=== PATIENT | male | born 1985 | race Caucasian/White ===

== ENCOUNTER 2020-04-24 16:06 | Emergency (ER) | payer BC ==
[2020-04-24] MEDS ORDERED: DIPH/PERTUSS(ACELL)/TETANUS VAC/PF 0.5 ML SYR (>=10YO) IM ONE (16:28)
[2020-04-24] MEDS ORDERED: HYDROCODONE/ACETAMINOPHEN 5-325 MG TABLET PO ONE (16:28)
--- NOTE | 2020-04-24 16:34 | ER Document Report ---
ED Medical Screen (RME) - General Chief Complaint: Fall Stated Complaint: FALL/LEFT LEG,HEAD INJURY Time Seen by Provider: 04/24/20 16:23 Mode of Arrival: Wheelchair Information source: Patient Notes: 34-year-old male presented to ED for multiple deep lacerations and avulsions to the left lower leg ankle and foot. He states he fell 8 feet off of a roof landing on his back and head after his left leg went through a window causing multiple lacerations and avulsions. The bleeding is not completely stopped so I put wet gauze and Mckay wrap to the foot and leg. He does have an abrasion and a small knot to the back of his head and states he does have some blurred vision. Ordered 1 [place] and a tetanus immunization because the patient states his immunization is not up-to-date. He will go to the CT scan radiology and then he will go to a room where he will be seen by another provider. I have greeted and performed a rapid initial assessment of this patient. A comprehensive ED assessment and evaluation of the patient, analysis of test results and completion of medical decision making process will be conducted by an additional ED providers. - Related Data Allergies/Adverse Reactions: No Known Allergies Allergy (Verified 04/24/20 16:27) Past Medical History Renal/ Medical History: Reports: Hx Kidney Stones Past Surgical History: Reports: Hx Cholecystectomy - Immunizations Hx Diphtheria, Pertussis, Tetanus Vaccination: Yes Physical Exam - Vital signs Vitals: Temp Pulse Resp BP Pulse Ox 98.3 F 100 18 119/93 H 97 04/24/20 16:12 04/24/20 16:12 04/24/20 16:12 04/24/20 16:12 04/24/20 16:12 Course - Vital Signs Vital signs: Temp Pulse Resp BP Pulse Ox 98.3 F 100 18 119/93 H 97 04/24/20 16:12 04/24/20 16:12 04/24/20 16:12 04/24/20 16:12 04/24/20 16:12
--- NOTE | 2020-04-24 17:02 | RADIOLOGY REPORT (SQ) ---
EXAM DESCRIPTION: CT HEAD WITHOUT IMAGES COMPLETED DATE/TIME: 04/24/2020 4:48 pm REASON FOR STUDY: Fell off roof hit back of head blurred vision COMPARISON: None. TECHNIQUE: Axial images acquired through the brain without intravenous contrast. Images reviewed wi th bone, brain and subdural windows. Additional sagittal and coronal reconstructions were generated. Images stored on PACS. All CT scanners at this facility use dose modulation, iterative reconstruction, and/or weight based d osing when appropriate to reduce radiation dose to as low as reasonably achievable (ALARA). [facility]: Dose Right [facility]: CareDose [facility]: Dose Right [facility]: Teradose 4D [facility]: [employer] RADIATION DOSE: CT Rad equipment meets quality standard of care and radiation dose reduction techniq ues were employed. CTDIvol: 53.2 mGy. DLP: 964 mGy-cm. mGy. LIMITATIONS: None. FINDINGS: VENTRICLES: Normal size and contour. CEREBRUM: No masses. No hemorrhage. No midline shift. No evidence for acute infarction. Normal gra y/white matter differentiation. No areas of low density in the white matter. CEREBELLUM: No masses. No hemorrhage. No alteration of density. No evidence for acute infarction. EXTRAAXIAL SPACES: No fluid collections. No masses. ORBITS AND GLOBE: No intra- or extraconal masses. Normal contour of globe without masses. CALVARIUM: No fracture. PARANASAL SINUSES: No fluid or mucosal thickening. SOFT TISSUES: No mass or hematoma. OTHER: No other significant finding. IMPRESSION: NORMAL BRAIN CT WITHOUT CONTRAST. EVIDENCE OF ACUTE STROKE: NO. COMMENT: Quality ID # [id number]: Final reports with documentation of one or more dose reduction techniques (e.g., Automated exposure control, adjustment of the mA and/or kV according to patient size, use of iterative reconstruction technique) TECHNICAL DOCUMENTATION: JOB ID: [id number] 2010 [employer]- All Rights Reserved Reading location - IP/workstation name: [email or web address]
--- NOTE | 2020-04-24 17:04 | RADIOLOGY REPORT (SQ) ---
EXAM DESCRIPTION: FOOT LEFT COMPLETE IMAGES COMPLETED DATE/TIME: 04/24/2020 4:48 pm REASON FOR STUDY: Leg went through window multiple deep lacerations COMPARISON: None. NUMBER OF VIEWS: Three views. TECHNIQUE: AP, lateral and oblique radiographic images acquired of the left foot. LIMITATIONS: None. FINDINGS: MINERALIZATION: Normal. BONES: No acute fracture or dislocation. No worrisome bone lesions. JOINTS: No effusions. SOFT TISSUES: 8 tiny focus of subcutaneous gas is seen over the dorsal midfoot, likely on the basis o f soft tissue injury. No retained radiopaque foreign body. OTHER: No other significant finding. IMPRESSION: Dorsal soft tissue injury without underlying osseous injury. TECHNICAL DOCUMENTATION: JOB ID: [id number] 2010 [employer]- All Rights Reserved Reading location - IP/workstation name: [email or web address]
--- NOTE | 2020-04-24 17:05 | RADIOLOGY REPORT (SQ) ---
EXAM DESCRIPTION: TIBIA FIBULA LEFT IMAGES COMPLETED DATE/TIME: 04/24/2020 4:48 pm REASON FOR STUDY: Leg went through window multiple deep lacerations COMPARISON: None. NUMBER OF VIEWS: Two views. TECHNIQUE: Two radiographic images acquired of the left tibia and fibula to include the knee and ank le in at least one projection. LIMITATIONS: None. FINDINGS: MINERALIZATION: Normal. BONES: No acute fracture or dislocation. No worrisome bone lesions. SOFT TISSUES: Soft tissue irregularity is seen anterior to the mid tibial diaphysis. OTHER: No other significant finding. IMPRESSION: Anterior soft tissue injury without underlying osseous injury. TECHNICAL DOCUMENTATION: JOB ID: [id number] 2010 [employer]- All Rights Reserved Reading location - IP/workstation name: [email or web address]
[2020-04-24] MEDS ORDERED: ONDANSETRON 4 MG TAB.RAPDIS PO ONE (17:51)
[2020-04-24] MEDS ORDERED: MORPHINE SULFATE 10 MG/ML INJ IM ONE (17:51)
[2020-04-24] MEDS ORDERED: CEPHALEXIN 500 MG CAPSULE PO ONE (17:53)
[2020-04-24] MEDS ORDERED: LIDOCAINE 1.5%/EPINEPHRINE INJ-PF 30 ML SDV INJ ONE (17:53)
[2020-04-24] MEDS ORDERED: LIDOCAINE 1.5%/EPINEPHRINE INJ-PF 30 ML SDV ONE (18:09)
--- NOTE | 2020-04-24 18:23 | RADIOLOGY REPORT (SQ) ---
EXAM DESCRIPTION: CHEST 2 VIEWS IMAGES COMPLETED DATE/TIME: 04/24/2020 5:07 pm REASON FOR STUDY: injury COMPARISON: None. EXAM PARAMETERS: NUMBER OF VIEWS: two views TECHNIQUE: Digital Frontal and Lateral radiographic views of the chest acquired. RADIATION DOSE: NA LIMITATIONS: none FINDINGS: LUNGS AND PLEURA: Lungs are hyperinflated. No opacities, masses or pneumothorax. No pleur al effusion. MEDIASTINUM AND HILAR STRUCTURES: No masses or contour abnormalities. HEART AND VASCULAR STRUCTURES: Heart normal size. No evidence for failure. BONES: No acute findings. HARDWARE: None in the chest. OTHER: No other significant finding. IMPRESSION: No acute cardiopulmonary disease. Hyperinflated lungs which can be seen with obstructiv e lung disease. TECHNICAL DOCUMENTATION: JOB ID: [id number] 2010 [employer]- All Rights Reserved Reading location - IP/workstation name: [id number]
--- NOTE | 2020-04-24 19:32 | ER Document Report ---
ED General <YESICA HART - Last Filed: 04/24/20 20:09> - General Mode of Arrival: Wheelchair - Related Data Home Medications: None <JAIDEN LABOY - Last Filed: 04/24/20 21:31> - General Chief Complaint: Fall Stated Complaint: FALL/LEFT LEG,HEAD INJURY Time Seen by Provider: 04/24/20 16:23 - HPI Notes: Patient is a 34-year-old male who presents emergency department for evaluation. He was on a roof, on a ladder. He went to step down the ladder slipped away. He fell with a ladder, down onto concrete ground. He struck the back of his head. He did not lose consciousness. He complains of pain in his left leg and in his head, as well as his anterior left chest wall. He sustained multiple lacerations to his left lower extremity when window broke with the fall. His tetanus is not up-to-date. He denies any numbness or tingling. He can see, speak, swallow without difficulty. He denies any shortness of breath. (JAIDEN LABOY) - Related Data Allergies/Adverse Reactions: No Known Allergies Allergy (Verified 04/24/20 16:27) Past Medical History - General Information source: Patient - Social History Smoking Status: Current Every Day Smoker Family History: DM, Hypertension Renal/ Medical History: Reports: Hx Kidney Stones Past Surgical History: Reports: Hx Cholecystectomy - Immunizations Hx Diphtheria, Pertussis, Tetanus Vaccination: Yes <JAIDEN LABOY - Last Filed: 04/24/20 21:31> Review of Systems - Review of Systems Constitutional: No symptoms reported EENT: No symptoms reported Cardiovascular: No symptoms reported Respiratory: No symptoms reported Gastrointestinal: No symptoms reported Genitourinary: No symptoms reported Musculoskeletal: See HPI Skin: See HPI Neurological/Psychological: No symptoms reported <JAIDEN LABOY - Last Filed: 04/24/20 21:31> Physical Exam <JAIDEN LABOY - Last Filed: 04/24/20 21:31> - Vital signs Vitals: Temp Pulse Resp BP Pulse Ox 98.3 F 100 18 119/93 H 97 04/24/20 16:12 04/24/20 16:12 04/24/20 16:12 04/24/20 16:12 04/24/20 16:12 - Notes Notes: Vital signs reviewed, please refer to chart. Head is normocephalic. Tender over the posterior occiput. Pupils equal round, reactive to light. Nares are patent without septal hematoma. No facial bone tenderness, no orbital stepoff. Oral m ucosa is moist. Uvula is midline. Examination of the spine yields no midline tenderness or step-off. No paraspinal musculature tenderness is appreciated. Heart is regular rate and rhythm. Lungs are clear to auscultation bilaterally. Chest wall excursion is equal, chest is mildly tender over the eighth and ninth ribs, on the left, from the anterior axillary line to the midclavicular line. No subcutaneous emphysema. Abdomen is soft, nontender, normoactive bowel sounds throughout. Extremities without cyanosis, clubbing. Posterior calves are nontender. Peripheral pulses are equal. Skin is warm and dry. Patient has multiple lacerations to the left lower extremity. He has a U-shaped laceration approximately 5 cm in length, inferior lateral left leg. He has a 2 cm laceration overlying the dorsum of the foot. He has another U-shaped laceration with a linear component, measuring approximately 4 cm, on the posterior calcaneus, overlying the Achilles tendon. Negative Mejia test. He has a large skin avulsion with exposure of muscular tissue to the mid lateral leg, overlying the anterior tibialis muscle. There is only a proximally 1 cm violation of the muscular fascia, but a large amount of subcutaneous tissue and skin is missing. Patient has significant difficulty with dorsiflexion of the foot. Sensation intact to the entire left lower extremity. He has a linear laceration patient is awake, alert, oriented x3. Cranial nerves II - XII are grossly intact without focal neurological deficits. Strength is plus 5 out of 5 bilateral upper and lower extremities, with the exception of the aforementioned dorsiflexion of the left foot. Sensation is intact. Reflexes symmetrical. Intact [id number], rapid alternating movements, [id number]. (JAIDEN LABOY) Course - Diagnostic Test Radiology reviewed: Image reviewed, Reports reviewed <JAIDEN LABOY - Last Filed: 04/24/20 21:31> - Re-evaluation Re-evalutation: 04/24/20 19:31 Patient presents to the emergency department for evaluation. He was initially seen through triage. He had his tetanus updated, had images ordered. I did order additional images and pain medication. I spoke with Dr. Lobo at 1737. I notified him of my concerns in regards to the avulsed skin and the difficulty with dorsiflexion of the foot. He recommends a wet-to-dry dressing. He will be seen in the office for possible skin grafting. Otherwise, patient is given pain medication, prophylactic antibiotics. Wounds were closed by the nurse practitioner, please see her procedure note. Following closure of these wounds we will place the patient in a posterior splint with dorsiflexion in place. We will send him home with pain medication and antibiotics. 04/24/20 20:24 Wounds closed by the nurse practitioner, please see her separate procedure note. Splint is being ordered, as well as crutches. We will send him with pain medication and antibiotics. 04/24/20 21:22 Patient neurovascularly intact following splint placement. Stable for discharge. (JAIDEN LABOY) - Vital Signs Vital signs: Temp Pulse Resp BP Pulse Ox 98.3 F 100 18 119/93 H 97 04/24/20 16:12 04/24/20 16:12 04/24/20 16:12 04/24/20 16:12 04/24/20 16:12 - Diagnostic Test Radiology results interpreted by me: 04/24/20 21:22 Foot X-Ray 04/24/20 16:23 IMPRESSION: Dorsal soft tissue injury without underlying osseous injury. Tibia/Fibula X-Ray 04/24/20 16:23 IMPRESSION: Anterior soft tissue injury without underlying osseous injury. Head CT 04/24/20 16:28 IMPRESSION: NORMAL BRAIN CT WITHOUT CONTRAST. EVIDENCE OF ACUTE STROKE: NO. Chest X-Ray 04/24/20 17:51 IMPRESSION: No acute cardiopulmonary disease. Hyperinflated lungs which can be seen with obstructive lung disease. (JAIDEN LABOY) Procedures - Laceration/Wound Repair Left Dorsal Foot Wound length (cm): 2 Wound's Depth, Shape: Linear Laceration pre-procedure: Shur-Clens applied Anesthetic type: 1% Lidocaine w/epi Wound explored: Clean Wound Repaired With: Sutures Suture Size/Type: 4:0, Prolene Number of Sutures: 3 Post-procedure wound care: Sterile dressing applied Post-procedure NV exam normal: Yes Complications: No Left Posterior Foot Wound length (cm): 5.5 Wound's Depth, Shape: Irregular, Flap Laceration pre-procedure: Shur-Clens applied Anesthetic type: 1% Lidocaine w/epi Wound explored: Clean Wound Repaired With: Sutures Suture Size/Type: 4:0, 3:0, Prolene, Nylon Number of Sutures: 9 Layer Closure?: No Post-procedure wound care: Sterile dressing applied Post-procedure NV exam normal: Yes Complications: No Left Anterior Leg Wound length (cm): 7.5 Wound's Depth, Shape: Irregular, Flap Laceration pre-procedure: Shur-Clens applied Anesthetic type: 1% Lidocaine w/epi Wound Repaired With: Sutures Suture Size/Type: 4:0, 3:0, Prolene Number of Sutures: 11 Layer Closure?: No Post-procedure NV exam normal: Yes Complications: No Adult Front & Back picture: 1 - lac <YESICA HART - Last Filed: 04/24/20 20:09> - Laceration/Wound Repair Left Posterior Foot Notes: 04/24/20 20:10 posterior heel (YESICA HART) Discharge <YESICA HART - Last Filed: 04/24/20 20:09> <JAIDEN LABOY - Last Filed: 04/24/20 21:31> - Discharge Clinical Impression: Acute chest wall pain Closed head injury Qualifiers: Encounter type: initial encounter Qualified Code(s): S09.90XA - Unspecified injury of head, initial encounter Lacerations of multiple sites of left leg Qualifiers: Encounter type: initial encounter Qualified Code(s): S81.812A - Laceration without foreign body, left lower leg, initial encounter Avulsion of soft tissue of left lower leg Qualifiers: Encounter type: initial encounter Qualified Code(s): S81.802A - Unspecified open wound, left lower leg, initial encounter Condition: Stable Disposition: HOME, SELF-CARE Instructions: Antibiotic Ointment Protection ([facility]), Laceration Care ([facility]), Oral Narcotic Medication ([facility]), Prophylactic Antibiotic ([facility]), Tetanus Immunization Given ([facility]) Additional Instructions: Take antibiotic as prescribed. [place] as needed for severe pain, ibuprofen as needed for moderate pain. Please watch for dizziness, drowsiness, constipation with the [place]. Please contact Dr. Lobo's office for a follow-up appointment this week. If he develops fever, vomiting, shortness of breath, worsened pain, or any other new or concerning symptoms, please return immediately to the emergency department for evaluation. Prescriptions: Hydrocodone/Acetaminophen [Hydrocodon-Acetaminoph 2.5-325] 1 each PO Q6HP PRN #10 tablet PRN Reason: Cephalexin Monohydrate [Keflex 500 mg Capsule] 500 mg PO TID #20 capsule Forms: Return to Work Referrals: DEON LOBO JR, DO [ACTIVE PROVISIONAL STAFF] - Follow up as needed
[2020-04-24] MEDS ORDERED: HYDROCODONE/ACETAMINOPHEN 5-325 MG (6 TAB/ER DISP) PO PRN (20:53)
[2020-04-24 21:55] VITALS: BP 124/72
== END 2020-04-24 21:55 | disposition home or self-care (01) ==
LOC: ER 16:06
DX: S81.812A Laceration without foreign body, left lower leg, initial encounter (principal); S91.312A Laceration without foreign body, left foot, initial encounter; S91.012A Laceration without foreign body, left ankle, initial encounter; R07.89 Other chest pain; S00.01XA Abrasion of scalp, initial encounter; R51.9 Headache, unspecified; W13.2XXA Fall from, out of or through roof, initial encounter; W25.XXXA Contact with sharp glass, initial encounter; F17.200 Nicotine dependence, unspecified, uncomplicated; Z23 Encounter for immunization
CPT/HCPCS: 99285; 96372; 71046; 73630; 73590; 70450; 90715; 12005; S0119; J2270; J3490

== ENCOUNTER 2020-04-25 10:42 | Emergency (ER) | payer BC ==
--- NOTE | 2020-04-25 11:36 | ER Document Report ---
ED Medical Screen (RME) - General Chief Complaint: Neck and Upper Back Pain Stated Complaint: FALL/ NECK TINGLING/ SORENESS Time Seen by Provider: 04/25/20 11:31 Mode of Arrival: Wheelchair Information source: Patient Notes: 34-year-old male was seen yesterday for after he fell off a roof. At that time he states that his neck and back were not hurting he was having extreme pain in his leg and head. The leg was repaired in the ED has an appointment with Dr. Dr. Lobo tomorrow and his head was CTs are negative. He states that now his neck and back are more painful. We will order CT of the neck and upper back and a lumbar x-ray. Patient is alert oriented respirations regular nonlabored at this time. I have greeted and performed a rapid initial assessment of this patient. A c omprehensive ED assessment and evaluation of the patient, analysis of test results and completion of medical decision making process will be conducted by an additional ED providers. - Related Data Allergies/Adverse Reactions: No Known Allergies Allergy (Verified 04/24/20 16:27) Past Medical History Renal/ Medical History: Reports: Hx Kidney Stones Past Surgical History: Reports: Hx Cholecystectomy - Immunizations Hx Diphtheria, Pertussis, Tetanus Vaccination: Yes Physical Exam - Vital signs Vitals: Temp Pulse Resp BP Pulse Ox 98.1 F 63 18 123/76 97 04/25/20 11:02 04/25/20 11:02 04/25/20 11:02 04/25/20 11:02 04/25/20 11:02 Course - Vital Signs Vital signs: Temp Pulse Resp BP Pulse Ox 98.1 F 63 18 123/76 97 04/25/20 11:02 04/25/20 11:02 04/25/20 11:02 04/25/20 11:02 04/25/20 11:02
--- NOTE | 2020-04-25 12:14 | RADIOLOGY REPORT (SQ) ---
EXAM DESCRIPTION: CT CERVICAL SPINE WITHOUT IMAGES COMPLETED DATE/TIME: 04/25/2020 11:51 am REASON FOR STUDY: Fell off roof yesterday landed on head neck and COMPARISON: None. TECHNIQUE: Axial images acquired through the cervical spine without intravenous contrast. Images re viewed with lung, soft tissue and bone windows. Reconstructed coronal and sagittal MPR images review ed. Images stored on PACS. All CT scanners at this facility use dose modulation, iterative reconstruction, and/or weight based d osing when appropriate to reduce radiation dose to as low as reasonably achievable (ALARA). [facility]: Dose Right [facility]: CareDose [facility]: Dose Right [facility]: Teradose 4D [facility]: [employer] RADIATION DOSE: CT Rad equipment meets quality standard of care and radiation dose reduction techniq ues were employed. CTDIvol: 19.5 mGy. DLP: 396 mGy-cm. mGy. LIMITATIONS: None. FINDINGS: ALIGNMENT: Anatomic. MINERALIZATION: Normal. VERTEBRAL BODIES: No fractures or dislocation. DISCS: No significant disc disease. FACETS, LATERAL MASSES, POSTERIOR ELEMENTS: No fractures. No dislocation. No acute findings. HARDWARE: None in the spine. VISUALIZED RIBS: No fractures. LUNG APICES AND SOFT TISSUES: No significant or acute findings. OTHER: No other significant finding. IMPRESSION: NO ACUTE OR SIGNIFICANT FINDINGS IN THE CERVICAL SPINE. TECHNICAL DOCUMENTATION: JOB ID: [id number] Quality ID # [id number]: Final reports with documentation of one or more dose reduction techniques (e.g., Au tomated exposure control, adjustment of the mA and/or kV according to patient size, use of iterative reconstruction technique) 2010 [email or web address]- All Rights Reserved Reading location - IP/workstation name: [email or web address]
--- NOTE | 2020-04-25 12:16 | RADIOLOGY REPORT (SQ) ---
EXAM DESCRIPTION: CT THORACIC SPINE WITHOUT IMAGES COMPLETED DATE/TIME: 04/25/2020 11:51 am REASON FOR STUDY: Fell off roof yesterday landed on head neck and COMPARISON: None. TECHNIQUE: Axial images acquired through the thoracic spine without intravenous contrast. Images re viewed with lung, soft tissue and bone windows. Reconstructed coronal and sagittal MPR images review ed. Images stored on PACS. All CT scanners at this facility use dose modulation, iterative reconstruction, and/or weight based d osing when appropriate to reduce radiation dose to as low as reasonably achievable (ALARA). [facility]: Dose Right [facility]: CareDose [facility]: Dose Right [facility]: Teradose 4D [facility]: Smart [employer] RADIATION DOSE: CT Rad equipment meets quality standard of care and radiation dose reduction techniq ues were employed. CTDIvol: 94.9 mGy. DLP: 3653 mGy-cm. LIMITATIONS: None. FINDINGS: VISUALIZED LUNGS: No acute opacities. No pneumothorax. SOFT TISSUES: No soft tissue swelling. No masses. VERTEBRAL BODIES: No fractures. No dislocation. No acute findings. DISCS: No significant disc space narrowing. ALIGNMENT: Normal. TRANSVERSE PROCESSES, POSTERIOR ELEMENTS: No fractures. No dislocation. No acute findings. HARDWARE: None in the spine. VISUALIZED RIBS: No fractures. OTHER: A nonobstructing 3--4 mm calculus in the upper pole of the right kidney. Small punctate nono bstructing calculus in the lower pole of the left kidney. IMPRESSION: 1. No acute osseous findings. 2. Incidentally, small subcentimeter bilateral nonobstructing nephrolithiasis. TECHNICAL DOCUMENTATION: JOB ID: [id number] Quality ID # [id number]: Final reports with documentation of one or more dose reduction techniques (e.g., Au tomated exposure control, adjustment of the mA and/or kV according to patient size, use of iterative reconstruction technique) 2010 [employer]- All Rights Reserved Reading location - IP/workstation name: [email or web address]
--- NOTE | 2020-04-25 12:49 | RADIOLOGY REPORT (SQ) ---
EXAM DESCRIPTION: L SPINE WHOLE IMAGES COMPLETED DATE/TIME: 04/25/2020 12:40 pm REASON FOR STUDY: Fell off roof yesterday landed on head neck and COMPARISON: None. NUMBER OF VIEWS: Five views including obliques. TECHNIQUE: AP, lateral, oblique, and sacral radiographic images acquired of the lumbar spine. LIMITATIONS: None. FINDINGS: MINERALIZATION: Normal. SEGMENTATION: Normal. No transitional anatomy. ALIGNMENT: Normal. VERTEBRAE: Maintained height. No fracture or worrisome bone lesion. DISCS: Preserved height. No significant osteophytes or end plate irregularity. POSTERIOR ELEMENTS: Pedicles and facets are intact. No pars defect or posterior arch defects. HARDWARE: None in the spine. PARASPINAL SOFT TISSUES: Normal. PELVIS: Intact as visualized. No fractures or worrisome bone lesions. SI joints intact. OTHER: Incidentally, small right renal calculus. IMPRESSION: 1. No acute osseous findings. TECHNICAL DOCUMENTATION: JOB ID: [id number] 2010 [employer]- All Rights Reserved Reading location - IP/workstation name: [email or web address]
[2020-04-25] MEDS ORDERED: HYDROCODONE/ACETAMINOPHEN 5-325 MG TABLET PO ONE (15:54)
--- NOTE | 2020-04-25 16:09 | ER Document Report ---
ED Neck/Back Problem - General Chief Complaint: Neck and Upper Back Pain Stated Complaint: FALL/ NECK TINGLING/ SORENESS Time Seen by Provider: 04/25/20 11:31 Mode of Arrival: Wheelchair Notes: CHIEF COMPLAINT: Neck and back pain HPI: 34-year-old male presenting again to the emergency department for neck and back pain after a mechanical fall off a roof yesterday. Patient slipped off the ladder and fell to the ground striking his back and head against the ground no loss of consciousness. Patient cut his left lower leg on a window that broke. Patient states he was here in the emergency department yesterday had some imaging studies of the leg of the head done and had sutures placed in the left leg. Patient states he noticed some numbness and tingling in the upper back lower neck region today so came back in for reevaluation. Denies weakness numbness or tingling in the extremities. Denies chest pain abdominal pain. ROS: See HPI - all other systems were reviewed and are otherwise negative Constitutional: no fever Eyes: no drainage, no blurred vision ENT: no runny nose, no sore throat Cardiovascular: no chest pain Resp: no SOB, no cough GI: no vomiting, no diarrhea, no abdominal pain : no dysuria Integumentary: no rash Allergy: no hives Musculoskeletal: + extremity pain or swelling, positive neck pain, positive back pain Neurological: no numbness/tingling, no weakness MEDICATIONS: I agree with the patient medications as charted by the RN. ALLERGIES: I agree with the allergies as charted by the RN. PAST MEDICAL HISTORY/PAST SURGICAL HISTORY: Reviewed and agree as charted by RN. SOCIAL HISTORY: Reviewed and agree as charted by RN. FAMILY HISTORY: No significant familial comorbid conditions directly related to patient complaint EXAM: Reviewed vital signs as charted by RN. CONSTITUTIONAL: Alert and oriented and responds appropriately to questions. Well-appearing; well-nourished HEAD: Normocephalic; atraumatic EYES: PERRL; Conjunctivae clear, sclerae non-icteric ENT: normal nose; no rhinorrhea; moist mucous membranes; pharynx without lesions noted, no uvula edema or deviation, no tonsillar hypertrophy, phonation normal NECK: Supple without meningismus; non-tender; no cervical lymphadenopathy, no masses CARD: RRR; no murmurs, no clicks, no rubs, no gallops; symmetric distal pulses RESP: Normal chest excursion without splinting or tachypnea; breath sounds clear and equal bilaterally; no wheezes, no rhonchi, no rales, pulse oximetry 99% on room air not hypoxic ABD/GI: Normal bowel sounds; non-distended; soft, non-tender, no rebound, no guarding; no palpable organomegaly or masses. BACK: The back appears normal and is mildly tender to palpation in the cervical thoracic and lumbar regions of the back including the musculature and paraspinous musculature, there is no CVA tenderness EXT: Normal ROM in all joints although there is a posterior splint on the left lower leg limiting some range of motion. Wounds are currently under a dressing and not evaluated at this time. There are several abrasions on the right lower extremity. SKIN: Normal color for age and race; warm; dry; good turgor; no acute lesions noted NEURO: Moves all extremities equally; Motor and sensory function intact. No saddle anesthesia on exam. Sensation intact and equal bilateral upper and lower extremities. [employer]ist are equal with strength 5/5 bilaterally PSYCH: The patient's mood and manner are appropriate. Grooming and personal hygiene are appropriate. MDM: 34-year-old male presenting for neck and back pain after fall off a roof yesterday. Patient had negative imaging studies of the head and left leg and foot yesterday. Mild generalized tenderness to the entire back. No specific point tenderness over the spine in the thoracic or lumbar region. Imaging studies ordered via triage process did not show acute emergent abnormalities. Patient has a known history of kidney stones. Patient's does request that I change his narcotic prescription medication. They have not filled it at the pharmacy yet, states he got a call from the pharmacy that hydrocodone 2.5 mg tablets have been called in and they were unable to fill these. I will call in the patient a dose of 5 mg tablets. - Related Data Allergies/Adverse Reactions: No Known Allergies Allergy (Verified 04/24/20 16:27) Past Medical History - General Information source: Patient - Social History Smoking Status: Unknown if Ever Smoked Family History: DM, Hypertension Renal/ Medical History: Reports: Hx Kidney Stones Past Surgical History: Reports: Hx Cholecystectomy - Immunizations Hx Diphtheria, Pertussis, Tetanus Vaccination: Yes Physical Exam - Vital signs Vitals: Temp Pulse Resp BP Pulse Ox 98.1 F 63 18 123/76 97 04/25/20 11:02 04/25/20 11:02 04/25/20 11:02 04/25/20 11:02 04/25/20 11:02 Course - Vital Signs Vital signs: Temp Pulse Resp BP Pulse Ox 98.1 F 63 18 123/76 97 04/25/20 11:02 04/25/20 11:02 04/25/20 11:02 04/25/20 11:02 04/25/20 11:02 Discharge - Discharge Clinical Impression: Neck pain Back pain Qualifiers: Back pain location: thoracic back pain Chronicity: acute Back pain laterality: bilateral Qualified Code(s): M54.6 - Pain in thoracic spine Fall Qualifiers: Encounter type: subsequent encounter Qualified Code(s): W19.XXXD - Unspecified fall, subsequent encounter Condition: Stable Disposition: HOME, SELF-CARE Additional Instructions: Warm heat to the neck and back to help with muscle spasm and discomfort. Do not fill the hydrocodone 2.5 mg tablets. Fill the [place] 5 mg tablets for pain. You may also take Motrin or naproxen for pain consistently. Follow-up with or thopedics for further evaluation as previously discussed Prescriptions: Hydrocodone/Acetaminophen [[place] 5-325 mg Tablet] 1 tab PO Q4 PRN #15 tablet PRN Reason:
[2020-04-25 16:52] VITALS: BP 126/74
== END 2020-04-25 17:10 | disposition home or self-care (01) ==
LOC: ER 10:42
DX: M54.2 Cervicalgia (principal); M54.6 Pain in thoracic spine; R20.2 Paresthesia of skin; W13.2XXA Fall from, out of or through roof, initial encounter; Z90.49 Acquired absence of other specified parts of digestive tract; Z87.442 Personal history of urinary calculi
CPT/HCPCS: 72110; 72125; 72128; 99285